=== PATIENT | female | born 1945 | race Caucasian/White ===

== ENCOUNTER 2020-07-26 12:53 | Emergency (ER) | payer OTHER ==
[~2020-07-26] VITALS: Ht 160 cm; Wt 88.5 kg
[2020-07-26] MEDS ORDERED: Norco 5-325 Ta1 EACH PO (15:41)
== END 2020-07-26 16:00 | disposition home or self-care (01) ==
LOC: ER 12:53
DX: S42.211A Unspecified displaced fracture of surgical neck of right humerus, initial encounter for closed fracture (principal); E10.9 Type 1 diabetes mellitus without complications; I10 Essential (primary) hypertension; W17.89XA Other fall from one level to another, initial encounter; Y92.008 Other place in unspecified non-institutional (private) residence as the place of occurrence of the external cause
CPT/HCPCS: 73020; 73060; 99283-25; A9270-GY

== ENCOUNTER 2022-06-23 19:50 | Emergency (ER) | payer OTHER ==
[~2022-06-23] VITALS: Ht 160 cm; Wt 81.7 kg
[~2022-06-23 19:50] MED LIST: Norco 5-325 Ta1 EACH PO
[2022-06-23] MEDS ORDERED: SYNTHROID50 MC1 PO (20:43)
[2022-06-23 21:39] LABS: BASOPHILS ABSOLUTE AUTO 0.07 K/mm3 (0.00-0.23); BASOPHILS PERCENT AUTO 0 % (0-2); EOSINOPHILS ABSOLUTE AUTO 0.03 K/mm3 (0.00-0.68); EOSINOPHILS PERCENT AUTO 0 % (0-6); Hematocrit 37.4 % (33.0-51.0); Hemoglobin 12.3 g/dL (11.5-16.0); IMMATURE GRAN ABSOLUTE AUTO 0.22 K/mm3 (0.00-0.10); IMMATURE GRAN PERCENT AUTO 1 % (0-1); LYMPHOCYTES ABSOLUTE AUTO 1.34 K/mm3 (0.84-5.20); LYMPHOCYTES PERCENT AUTO 6 % (21-46); MONOCYTES ABSOLUTE AUTO 1.66 K/mm3 (0.16-1.47); MONOCYTES PERCENT AUTO 7 % (4-13); Mean Corpuscular HGB 28.5 pg (26.0-34.0); Mean Corpuscular HGB Conc 32.9 g/dL (31.5-36.5); Mean Corpuscular Volume 87 fL (80-100); Mean Platelet Volume 9.6 fL (9.1-12.4); NEUTROPHILS ABSOLUTE AUTO 19.16 K/mm3 (1.96-9.15); NEUTROPHILS PERCENT AUTO 85 % (41-73); Platelet Count 292 K/mm3 (150-400); RDW Coefficient Variation 13.3 % (11.7-14.2); RDW Standard Deviation 42.3 fL (35.1-46.3); Red Blood Cell Count 4.32 M/mm3 (3.80-5.20); White Blood Cell Count 22.48 K/mm3 (4.00-11.30)
[2022-06-23 22:06] LABS: Albumin, Blood 3.3 g/dL (3.4-5.0); Albumin/Globulin Ratio 0.9 (0.8-1.8); Bilirubin, Total 0.8 mg/dL (0.1-1.0); Bun/Creatinine Ratio 18.4 (12.0-20.0); Calcium, Blood 8.3 mg/dL (8.5-10.1); Creatinine, Blood 1.25 mg/dL (0.40-1.00); Globulin, Blood 3.8 g/dL (2.2-4.0); Potassium, Blood 3.2 mmol/L (3.5-5.5); Total Protein, Blood 7.1 g/dL (6.4-8.2)
[2022-06-23 22:18] LABS: Influenza A, PCR NEGATIVE (NEGATIVE); Influenza B, PCR NEGATIVE (NEGATIVE); Resp Syncytial Virus, PCR NEGATIVE (NEGATIVE); SARS-Cov-2 (COVID-19) PCR, MMC NEGATIVE (NEGATIVE)
[2022-06-23] MEDS ORDERED: DOXY100 PO (22:43)
== END 2022-06-23 22:57 | disposition home or self-care (01) ==
LOC: ER 19:50
PROVIDERS: Student in an Organized Health Care Education/Training Program
DX: J18.9 Pneumonia, unspecified organism (principal); Z79.890 Hormone replacement therapy; Z20.822 Contact with and (suspected) exposure to COVID-19
CPT/HCPCS: 0241U; 36415; 71046; 73130; 80053; 85025; 99284-25; A9270

== ENCOUNTER 2022-06-29 10:53 | Emergency (ER) | payer OTHER ==
[~2022-06-29] VITALS: Ht 160 cm; Wt 81.7 kg
[~2022-06-29 10:53] MED LIST changes: +DOXY100 PO; +SYNTHROID50 MC1 PO
[2022-06-29] MEDS ORDERED: AZIT250 PO (12:02)
== END 2022-06-29 12:54 | disposition home or self-care (01) ==
LOC: ER 10:53
DX: J18.9 Pneumonia, unspecified organism (principal)
CPT/HCPCS: 99283